=== PATIENT | female | born 1985 | race Caucasian/White ===

== ENCOUNTER 2017-01-07 21:01 | Emergency (ER) | payer MEDICAID ==
--- NOTE | 2017-01-07 21:18 | Emergency Department Record ---
History of Present Illness - General Chief complaint: ENT Stated complaint: SORE THROAT,WHITE BUMPS IN THROAT Time Seen by Provider: 01/07/17 21:15 Source: Patient Mode of Arrival: Ambulatory Limitations: No limitations - History of Present Illness Initial comments: 31 yo female presents to ED for evaluation of sore throat x 3 days. Patient reports that her daughter was recently diagnosed with tonsillitis, denies fevers , chills, cough, or ear pain symptoms. Patient does report drainage from the sinuses to the back of her throat, denies health problems at her baseline. MD complaint: Sore throat Onset/Timin -: Days(s) Location: Throat Severity: Moderate Severity scale (1-10): 6 Quality: Aching Consistency: Constant Improves with: None Worsens with: None Associated Symptoms: Sore throat - Related Data Home Medications Medication Instructions Recorded Confirmed Last Taken Omeprazole [Omeprazole] 40 mg PO DAILY 01/07/17 01/07/17 Unknown Allergies Allergy/AdvReac Type Severity Reaction Status Date / Time adhesive tape Allergy Intermediate RASH Unverified 08/27/16 08:46 nickel Allergy Intermediate SWELLING Unverified 08/27/16 08:46 (GENERAL) cyclobenzaprine HCl Allergy Mild CHILLS Unverified 08/27/16 08:46 [From Flexeril] Travel Screening - Travel/Exposure Within Last 30 Days Have you traveled within the last 30 days?: No Review of Systems Constitutional: Denies: Chills, Fever, Malaise, Night sweats Eyes: Denies: Eye discharge, Eye pain ENT: Reports: Congestion, Throat pain. Denies: Ear pain, Epistaxis Respiratory: Denies: Cough, Dyspnea Cardiovascular: Denies: Chest pain, Dyspnea on exertion Endocrine: Denies: Fatigue, Heat or cold intolerance Gastrointestinal: Denies: Abdominal pain, Nausea, Vomiting Genitourinary: Denies: Incontinence, Retention Musculoskeletal: Denies: Arthralgia, Back pain, Gout, Joint swelling Skin: Denies: Bruising, Change in color Neurological: Denies: Abnormal gait, Confusion, Headache, Seizure Psychiatric: Denies: Anxiety Hematological/Lymphatic: Denies: Anemia, Blood Clots Past Medical History - SOCIAL HISTORY Smoking Status: Former smoker Alcohol Use: None Drug Use: None - RESPIRATORY Hx Respiratory Disorders: No - CARDIOVASCULAR Hx Cardio Disorders: No - NEURO Hx Neuro Disorders: No - GI Hx Reflux: Yes Comment:: milroy water retention - Hx Genitourinary Disorders: Yes Hx UTI: Yes - ENDOCRINE Hx Endocrine Disorders: No - MUSCULOSKELETAL Hx Musculoskeletal Disorders: No - PSYCH Hx Psych Problems: No - HEMATOLOGY/ONCOLOGY Hx Hematology/Oncology Disorders: No Family Medical History Any Significant Family History?: No Physical Exam - General General Appearance: Alert, Oriented x3, Cooperative, No acute distress Limitations: No limitations - Head Head exam: Atraumatic, Normocephalic, Normal inspection Head exam detail: negative: Abrasion, Contusion, Rodriguez's sign, General tenderness, Hematoma, Laceration - Eye Eye exam: Normal appearance. negative: Conjunctival injection, Periorbital swelling, Periorbital tenderness, Scleral icterus - ENT ENT exam: Normal orophraynx Ear exam: negative: Auricular hematoma, Auricular trauma Nasal Exam: negative: Active bleeding, Discharge, Dried blood, Foreign body Mouth exam: negative: Drooling, Laceration, Muffled voice, Tongue elevation Throat exam: negative: Tonsillar erythema, Tonsillomegaly, R peritonsillar mass , L peritonsillar mass - Neck Neck exam: Normal inspection. negative: Meningismus, Tenderness - Respiratory Respiratory exam: Normal lung sounds bilaterally. negative: Rales, Respiratory distress, Rhonchi, Stridor - Cardiovascular Cardiovascular Exam: Regular rate, Normal rhythm, Normal heart sounds - GI/Abdominal GI/Abdominal exam: Soft. negative: Rebound, Rigid, Tenderness - Rectal Rectal exam: Deferred - exam: Deferred - Extremities Extremities exam: Normal inspection. negative: Pedal edema, Tenderness - Back Back exam: Denies: CVA tenderness (R), CVA tenderness (L) - Neurological Neurological exam: Alert, Normal gait, Oriented X3 - Psychiatric Psychiatric exam: Normal affect, Normal mood - Skin Skin exam: Normal color. negative: Abrasion Type of lesion: negative: abrasion Course Vital Signs 01/07/17 21:07 Temperature 98.5 F Pulse Rate [ 88 Pulse Ox Probe] Respiratory 20 Rate Blood Pressure 143/106 [Left Arm] Pulse Ox 98 - Reevaluation(s) Reevaluation #1: 01/07/17 21:26 Rapid strep negative Patient was updated on her strep results, symptoms appear c/w viral URI. Patient appears stable for discharge at this time. Disposition Disposition: Discharge Clinical Impression: Pharyngitis Qualifiers: Pharyngitis/tonsillitis etiology: unspecified etiology Qualified Code(s): J02.9 - Acute pharyngitis, unspecified Disposition: Home, Self-Care Condition: (2) Stable Instructions: Pharyngitis (ED) Additional Instructions: Return to ED if your symptoms worsen or if you have any concerns. Follow-up with your family doctor in 3-5 days as directed. Forms: Patient Portal Access Time of Disposition: 21:28 Quality - Quality Measures Quality Measures: N/A - Blood Pressure Screening Does Patient Have Any of the Following: No Blood Pressure Classification: Hypertensive Reading Systolic Measurement: 143 Diastolic Measurement: 106 Screening for High Blood Pressure: < First Hypertensive BP, F/U Documented > [ G8950] First Hypertensive Follow-up Interventions: Referral to alternative/primary care provider.
== END 2017-01-07 21:40 | disposition home or self-care (01) ==
LOC: ER 21:01
DX: J02.9 Acute pharyngitis, unspecified (principal)
CPT/HCPCS: 87880; 99282

== ENCOUNTER 2017-05-12 17:40 | Emergency (ER) | payer MEDICAID ==
--- NOTE | 2017-05-12 17:52 | Emergency Department Record ---
History of Present Illness - General Chief complaint: Female Urogenital Problem Stated complaint: MENSTRAUL BLEEDING Time Seen by Provider: 05/12/17 17:50 Source: Patient Mode of Arrival: Ambulatory Limitations: No limitations - History of Present Illness Initial comments: The patient is here due to a one day hx of lower abdominal pain and heavy vaginal bleeding. She states she may be bleeding about and ounce an hour and has felt weak and lightheaded today. She also is having abdominal cramping and nausea. The patient states she was due for her menses today which is her normal date but she is bleeding much more heavy than normal. There is no reported fever , chills, dysuria, or vaginal discharge. MD Complaint: Vaginal bleeding Onset/Timin -: Days(s) Location: Suprapubic Consistency: Constant Improves with: None Worsens with: None Patient : No Associated Symptoms: Abdominal pain, Nausea/vomiting, Vaginal bleeding, Other - Related Data Previous Rx's Medication Instructions Recorded Doxycycline Monohydrate [Mondoxyne 100 mg PO BID #20 capsule 05/12/17 Nl] Hydrocodone/Acetaminophen [[place] 1 each PO QID #12 tablet 05/12/17 5-325 Tablet] Metronidazole [Flagyl] 500 mg PO BID #20 tablet 05/12/17 Ondansetron [Zofran Odt] 4 mg SL .Q4-6H PRN #12 tab.rapdis 05/12/17 Allergies Allergy/AdvReac Type Severity Reaction Status Date / Time adhesive tape Allergy Intermediate RASH Verified 05/12/17 17:50 nickel Allergy Intermediate SWELLING Verified 05/12/17 17:50 (GENERAL) cyclobenzaprine HCl AdvReac Mild CHILLS Verified 05/12/17 17:50 [From Flexeril] NSAIDS (Non-Steroidal AdvReac VOMITING Verified 05/12/17 17:51 Anti-Inflamma Travel Screening - Travel/Exposure Within Last 30 Days Have you traveled within the last 30 days?: No Review of Systems Constitutional: Denies: Chills, Fever Eyes: Denies: Eye discharge ENT: Denies: Congestion Respiratory: Denies: Cough, Dyspnea Past Medical History - SOCIAL HISTORY Smoking Status: Former smoker Alcohol Use: Occasional Drug Use: None - RESPIRATORY Hx Respiratory Disorders: No - CARDIOVASCULAR Hx Cardio Disorders: No - NEURO Hx Neuro Disorders: No - GI Hx GI Disorders: Yes Hx Reflux: Yes Comment:: [place] water retention - Hx Genitourinary Disorders: Yes Hx UTI: Yes - ENDOCRINE Hx Endocrine Disorders: No - MUSCULOSKELETAL Hx Musculoskeletal Disorders: No - PSYCH Hx Psych Problems: No - HEMATOLOGY/ONCOLOGY Hx Hematology/Oncology Disorders: No Family Medical History Any Significant Family History?: No Physical Exam - General General Appearance: Alert, Oriented x3, Cooperative, No acute distress - Head Head exam: Atraumatic, Normocephalic - Eye Eye exam: Normal appearance, PERRL - Neck Neck exam: Normal inspection, Full ROM. negative: Tenderness - Respiratory Respiratory exam: Normal lung sounds bilaterally. negative: Respiratory distress - Cardiovascular Cardiovascular Exam: Regular rate, Normal rhythm, Normal heart sounds - GI/Abdominal GI/Abdominal exam: Soft, Tenderness (There is diffuse lower abdominal tenderness.). negative: Distended, Rebound, Rigid - exam: Adnexal tenderness (L), Adnexal tenderness (R), cervical motion tenderness, Normal external exam. negative: Abnormal external exam, Adnexal mass (L), Adnexal mass (R), Cervical discharge, Enlarged uterus, Normal bimanual exam, Vaginal bleeding (There presently is no active bleeding.) - Extremities Extremities exam: Pedal edema (chronic.). negative: Normal inspection Course Vital Signs 05/12/17 17:46 Temperature 98.2 F Pulse Rate 91 H Respiratory 20 Rate Blood Pressure 142/99 Pulse Ox 99 - Reevaluation(s) Reevaluation #1: The patient is stable at this time but is still having a significant amount of lower AP. On exam her abdomen is distillation operator but with no guarding or rebound. I did explain to her that it clearly appears that her bleeding has slowed down but due to the amount of pain and tenderness she is experiencing we will treat her for PID and order a CT. If the CT is neg she will be set up for an US in the AM. 05/12/17 18:42 Reevaluation #2: I do have the patient set up for an 8am US so she will need to return to the ER at 7am with a full bladder. The patient's care will be turned over to Dr. Kaplan at 7pm due to shift change. 05/12/17 18:49 05/12/17 18:55 Medical Decision Making - Lab Data Result diagrams: 05/12/17 18:00 05/12/17 18:00 Disposition Additional Instructions: Please return to the ER at 7am with a full bladder for an 8am pelvic US. Prescriptions: Doxycycline Monohydrate [Mondoxyne Nl] 100 mg PO BID #20 capsule Hydrocodone/Acetaminophen [[place] 5-325 Tablet] 1 each PO QID #12 tablet Metronidazole [Flagyl] 500 mg PO BID #20 tablet Ondansetron [Zofran Odt] 4 mg SL .Q4-6H PRN #12 tab.rapdis PRN Reason: Nausea Forms: Patient Portal Access Quality - Quality Measures Quality Measures: N/A - Blood Pressure Screening View Details: Yes Does Patient Have Any of the Following: No Blood Pressure Classification: Hypertensive Reading Systolic Measurement: 142 Diastolic Measurement: 99 Screening for High Blood Pressure: < First Hypertensive BP, F/U Documented > [ G8950] First Hypertensive Follow-up Interventions: Referral to alternative/primary care provider.
[2017-05-12] MEDS ORDERED: SODIUM CHLORIDE 0.9% 500 ML IV ONE (17:55)
[2017-05-12] MEDS ORDERED: ONDANSETRON HCL IV 4 MG/2 ML VIAL IV ONE (17:55)
[2017-05-12 18:13] LABS: BASO % 0.3 % (0-6); EOS % 1.9 % (0-6); GRAN % 59.7 % (47-80); HEMATOCRIT 36.4 % (35.0-47.0); HEMOGLOBIN 11.5 gm/dl (11.6-16.0); LYMPH % 27.4 % (16-45); MEAN CELL VOLUME 82.4 fl (81-97); MEAN CORPUSCULAR HGB CONC 31.6 g/dl (32-36); MEAN PLATELET VOLUME 10.6 fl (7.4-10.4); MONO % 10.7 % (0-9); PLATELET COUNT 256 K/uL (130-400); RED BLOOD COUNT 4.42 M/uL (3.80-5.40); RED CELL DISTRIBUTION WIDTH 14.5 % (11.5-14.5); WHITE BLOOD COUNT W/O DIFF 6.4 K/uL (4.2-12.2)
[2017-05-12] MEDS ORDERED: KETOROLAC 30 MG/ML VIAL IVP ONE (18:20)
[2017-05-12 18:29] LABS: BLOOD UREA NITROGEN 13 mg/dL (6-20); CREATININE 0.7 mg/dL (0.5-0.9); EST GLOMERULAR FILTRATION RATE > 60 mL/min; GLUCOSE,RANDOM 102 mg/dL (74-109)
[2017-05-12] MEDS ORDERED: ONDANSETRON HCL IV 4 MG/2 ML VIAL IVP ONE (18:39)
[2017-05-12] MEDS ORDERED: CEFTRIAXONE 250 MG VIAL IM ONE (18:41)
--- NOTE | 2017-05-12 19:17 | Emergency Department Record ---
History of Present Illness - General Chief complaint: Female Urogenital Problem Stated complaint: MENSTRAUL BLEEDING Time Seen by Provider: 05/12/17 17:50 Source: Patient Mode of Arrival: Ambulatory Limitations: No limitations - History of Present Illness Onset/Timin -: Days(s) Location: Suprapubic Consistency: Constant Improves with: None Worsens with: None Patient : No Associated Symptoms: Abdominal pain, Nausea/vomiting, Vaginal bleeding, Other - Related Data Previous Rx's Medication Instructions Recorded Doxycycline Monohydrate [Mondoxyne 100 mg PO BID #20 capsule 05/12/17 Nl] Hydrocodone/Acetaminophen [[place] 1 each PO QID #12 tablet 05/12/17 5-325 Tablet] Metronidazole [Flagyl] 500 mg PO BID #20 tablet 05/12/17 Ondansetron [Zofran Odt] 4 mg SL .Q4-6H PRN #12 tab.rapdis 05/12/17 Allergies Allergy/AdvReac Type Severity Reaction Status Date / Time adhesive tape Allergy Intermediate RASH Verified 05/12/17 17:50 nickel Allergy Intermediate SWELLING Verified 05/12/17 17:50 (GENERAL) cyclobenzaprine HCl AdvReac Mild CHILLS Verified 05/12/17 17:50 [From Flexeril] NSAIDS (Non-Steroidal AdvReac VOMITING Verified 05/12/17 17:51 Anti-Inflamma Travel Screening - Travel/Exposure Within Last 30 Days Have you traveled within the last 30 days?: No Review of Systems Constitutional: Denies: Chills, Fever Eyes: Denies: Eye discharge ENT: Denies: Congestion Respiratory: Denies: Cough, Dyspnea Past Medical History - SOCIAL HISTORY Smoking Status: Former smoker Alcohol Use: Occasional Drug Use: None - RESPIRATORY Hx Respiratory Disorders: No - CARDIOVASCULAR Hx Cardio Disorders: No - NEURO Hx Neuro Disorders: No - GI Hx GI Disorders: Yes Hx Reflux: Yes Comment:: milroy water retention - Hx Genitourinary Disorders: Yes Hx UTI: Yes - ENDOCRINE Hx Endocrine Disorders: No - MUSCULOSKELETAL Hx Musculoskeletal Disorders: No - PSYCH Hx Psych Problems: No - HEMATOLOGY/ONCOLOGY Hx Hematology/Oncology Disorders: No Family Medical History Any Significant Family History?: No Physical Exam - General Limitations: No limitations Course Vital Signs 05/12/17 17:46 Temperature 98.2 F Pulse Rate 91 H Respiratory 20 Rate Blood Pressure 142/99 Pulse Ox 99 - Reevaluation(s) Reevaluation #1: 05/12/17 19:17 Labs reviewed and are grossly unremarkable for an acute process. Patient was seen and examined, appears to be resting comfortably at this time. Patient is going for CT imaging currently. Reevaluation #2: 05/12/17 20:27 CT Abdomen and Pelvis: No ascites IUD in place No acute process. Patient was updated on all results, pain appears well controlled and the patient appears stable for discharge with return at 8:00 for US of the Pelvis ordered by the previous provider. Patient was updated on all results and the plan of care as discussed. Medical Decision Making - Lab Data Result diagrams: 05/12/17 18:00 05/12/17 18:00 Lab Results 05/12/17 05/12/17 05/12/17 Range/Units 18:00 18:00 18:00 WBC 6.4 (4.2-12.2) K/uL RBC 4.42 (3.80-5.40) M/uL Hgb 11.5 L (11.6-16.0) gm/dl Hct 36.4 (35.0-47.0) % MCV 82.4 (81-97) fl MCH 26.0 L (27-33) pg MCHC 31.6 L (32-36) g/dl RDW 14.5 (11.5-14.5) % Plt Count 256 (130-400) K/uL MPV 10.6 H (7.4-10.4) fl Gran % 59.7 (47-80) % Lymphocytes % 27.4 (16-45) % Monocytes % 10.7 H (0-9) % Eosinophils % 1.9 (0-6) % Basophils % 0.3 (0-6) % Sodium 139 (136-145) mmol/L Potassium 4.2 (3.4-4.5) mmol/L Chloride 103 (98-107) mmol/L Carbon Dioxide 25.0 (22-29) mmol/L Anion Gap 11.0 (7-16) BUN 13 (6-20) mg/dL Creatinine 0.7 (0.5-0.9) mg/dL Estimated GFR > 60 mL/min Random Glucose 102 (74-109) mg/dL Calcium 8.4 L (8.6-10.0) mg/dL Serum HCG, Qual Negative (NEGATIVE) Wet Prep (NONE SEEN) 05/12/17 Range/Units 18:18 WBC (4.2-12.2) K/uL RBC (3.80-5.40) M/uL Hgb (11.6-16.0) gm/dl Hct (35.0-47.0) % MCV (81-97) fl MCH (27-33) pg MCHC (32-36) g/dl RDW (11.5-14.5) % Plt Count (130-400) K/uL MPV (7.4-10.4) fl Gran % (47-80) % Lymphocytes % (16-45) % Monocytes % (0-9) % Eosinophils % (0-6) % Basophils % (0-6) % Sodium (136-145) mmol/L Potassium (3.4-4.5) mmol/L Chloride (98-107) mmol/L Carbon Dioxide (22-29) mmol/L Anion Gap (7-16) BUN (6-20) mg/dL Creatinine (0.5-0.9) mg/dL Estimated GFR mL/min Random Glucose (74-109) mg/dL Calcium (8.6-10.0) mg/dL Serum HCG, Qual (NEGATIVE) Wet Prep Clue cells (NONE SEEN) Disposition Disposition: Discharge Clinical Impression: Pelvic pain Disposition: Home, Self-Care Condition: (2) Stable Instructions: Abdominal Pain (ED) Additional Instructions: Please return to the ER at 7am with a full bladder for an 8am pelvic US. Prescriptions: Doxycycline Monohydrate [Mondoxyne Nl] 100 mg PO BID #20 capsule Hydrocodone/Acetaminophen [[place] 5-325 Tablet] 1 each PO QID #12 tablet Metronidazole [Flagyl] 500 mg PO BID #20 tablet Ondansetron [Zofran Odt] 4 mg SL .Q4-6H PRN #12 tab.rapdis PRN Reason: Nausea Forms: Patient Portal Access Time of Disposition: 20:29 Quality - Quality Measures Quality Measures: N/A - Blood Pressure Screening Does Patient Have Any of the Following: No Blood Pressure Classification: Hypertensive Reading Systolic Measurement: 134 Diastolic Measurement: 90 Screening for High Blood Pressure: < First Hypertensive BP, F/U Documented > [ G8950] First Hypertensive Follow-up Interventions: Referral to alternative/primary care provider.
--- NOTE | 2017-05-13 11:18 | CT SCAN REPORT ---
EXAM: CT OF THE ABDOMEN AND PELVIS WITH INTRAVENOUS CONTRAST HISTORY: HEAVY MENSTRUAL BLEEDING. TECHNIQUE: After the administration of 100 ml of Omnipaque 300 intravenous contrast axial images are obtained from the dome of the diaphragm to the symphysis pubis. FINDINGS: The lung bases and pleural spaces are clear. There is evidence of prior surgery at the epigastrium. The liver is normal. The gallbladder is normal. The pancreas and spleen are within normal limits. The kidneys and adrenal glands demonstrate no soft tissue mass, hydronephrosis, or perinephric inflammatory change. There is a retroaortic left renal vein. There is no evidence of mesenteric mass, bowel dilatation, free air or intraperitoneal free fluid. There is no evidence of intrapelvic mass. A cervical cap is present. There are no adnexal masses. The bones are unremarkable. No abdominal wall pathology is detected. IMPRESSION: NO EVIDENCE OF AN ACUTE INTRAABDOMINAL OR INTRAPELVIC PROCESS. JOB NUMBER: [id number] MTDD
[2017-05-14 15:54] LABS: GC SPECIMEN TYPE Vaginal
== END 2017-05-12 20:38 | disposition home or self-care (01) ==
LOC: ER 17:40
DX: R10.2 Pelvic and perineal pain (principal); N93.9 Abnormal uterine and vaginal bleeding, unspecified; R11.2 Nausea with vomiting, unspecified; R42 Dizziness and giddiness
CPT/HCPCS: 99284 ×2; 96376; 96374; 96372; 96375; 85025; 80048; 84703; 74177; Q0111; Q9967; J1885; J2405; J0696; 87210

== ENCOUNTER 2017-05-13 07:01 | Emergency (ER) | payer MEDICAID ==
--- NOTE | 2017-05-13 07:15 | Emergency Department Record ---
History of Present Illness - General Chief complaint: Female Urogenital Problem Stated complaint: ULTRASOUND Time Seen by Provider: 05/13/17 07:05 Source: Patient Mode of Arrival: Ambulatory Limitations: No limitations - History of Present Illness Initial comments: 31 yo female presents with 2 days of pelvic pain and heavy vaginal bleeding. She was seen in the ED yesterday. She was positive for clue cells on her pelvic examination. Her labs at that time were unremarkable. She had a CT scan that was read as normal. She was scheduled for an US this morning. The patient has had vaginal bleeding with the discomfort. This is slowing. She was HCG negative. Her Hgb was 11.5. Normal WBC count. MD Complaint: Pelvic pain -: Days(s) (2) Location: Suprapubic Radiation: Suprapubic Severity: Moderate Quality: Aching Consistency: Constant Improves with: None Worsens with: None Patient : No Associated Symptoms: Abdominal pain - Related Data Previous Rx's Medication Instructions Recorded Doxycycline Monohydrate [Mondoxyne 100 mg PO BID #20 capsule 05/12/17 Nl] Hydrocodone/Acetaminophen [[place] 1 each PO QID #12 tablet 05/12/17 5-325 Tablet] Metronidazole [Flagyl] 500 mg PO BID #20 tablet 05/12/17 Ondansetron [Zofran Odt] 4 mg SL .Q4-6H PRN #12 tab.rapdis 05/12/17 Allergies Allergy/AdvReac Type Severity Reaction Status Date / Time adhesive tape Allergy Intermediate RASH Verified 05/12/17 17:50 nickel Allergy Intermediate SWELLING Verified 05/12/17 17:50 (GENERAL) cyclobenzaprine HCl AdvReac Mild CHILLS Verified 05/12/17 17:50 [From Flexeril] NSAIDS (Non-Steroidal AdvReac VOMITING Verified 05/12/17 17:51 Anti-Inflamma Review of Systems Constitutional: Denies: Chills, Fever, Malaise, Weakness Eyes: Denies: Eye discharge ENT: Denies: Congestion Respiratory: Denies: Cough, Dyspnea, Hemoptysis, Stridor, Wheezes Cardiovascular: Denies: Chest pain, Syncope Endocrine: Denies: Fatigue Gastrointestinal: Reports: As per HPI, Abdominal pain Genitourinary: Denies: Dysuria, Urgency Skin: Denies: Bruising, Change in color, Rash Neurological: Denies: Headache Psychiatric: Denies: Anxiety Hematological/Lymphatic: Denies: Blood Clots, Easy bleeding, Easy bruising, Swollen glands Past Medical History - SOCIAL HISTORY Smoking Status: Former smoker Drug Use: None - RESPIRATORY Hx Respiratory Disorders: No - CARDIOVASCULAR Hx Cardio Disorders: No - NEURO Hx Neuro Disorders: No - GI Hx GI Disorders: Yes Hx Reflux: Yes Comment:: milroy water retention - Hx Genitourinary Disorders: Yes Hx UTI: Yes - ENDOCRINE Hx Endocrine Disorders: No - MUSCULOSKELETAL Hx Musculoskeletal Disorders: No - PSYCH Hx Psych Problems: No - HEMATOLOGY/ONCOLOGY Hx Hematology/Oncology Disorders: No Physical Exam - General General Appearance: Alert, Oriented x3 Limitations: No limitations - Head Head exam: Atraumatic - Eye Eye exam: Normal appearance - ENT ENT exam: Normal exam Ear exam: Normal external inspection Nasal Exam: Normal inspection Mouth exam: Normal external inspection - Neck Neck exam: Normal inspection - Cardiovascular Cardiovascular Exam: Regular rate, Normal rhythm, Normal heart sounds - Rectal Rectal exam: Deferred - exam: Deferred - Extremities Extremities exam: Normal inspection - Back Back exam: Denies: CVA tenderness (R), CVA tenderness (L) - Neurological Neurological exam: Alert, Oriented X3 - Psychiatric Psychiatric exam: Agitated, Anxious - Skin Skin exam: Dry, Intact, Normal color, Warm Course Vital Signs 05/13/17 07:05 Pulse Rate [ 95 H Pulse Ox Probe] Respiratory 20 Rate Blood Pressure 156/89 [Left Arm] Pulse Ox 99 - Reevaluation(s) Reevaluation #1: The EMR was reviewed The Labs, wet prep, and CT were reviewed Serum HCG was negative last night 05/13/17 07:14 05/13/17 09:02 UA is negative The US was reviewed. Complex fluid in the endometrium, small follicles, small free fluid. The patient is comfortable, her bleeding has stopped We discussed close follow up with the [facility] where her PCP is located. 05/13/17 10:44 Disposition Disposition: Discharge Clinical Impression: Bacterial vaginosis, Pelvic pain Disposition: Home, Self-Care Condition: (1) Good Instructions: Bacterial Vaginosis (ED), Pelvic Pain (ED) Additional Instructions: Call your family doctor for close follow up Return to the ER if worse, fever, uncontrolled pain or any new concerns Forms: Patient Portal Access Time of Disposition: 09:02 Quality - Quality Measures Quality Measures: N/A - Blood Pressure Screening Does Patient Have Any of the Following: No Blood Pressure Classification: Hypertensive Reading Systolic Measurement: 141 Diastolic Measurement: 95 Screening for High Blood Pressure: < Pre-Hypertensive BP, F/U Documented > [ G8950] Pre-Hypertensive Follow-up Interventions: Referral to alternative/primary care provider.
[2017-05-13 08:32] LABS: URINE APPEARANCE CLEAR; URINE BILIRUBIN NEGATIVE (NEGATIVE); URINE BLOOD NEGATIVE (NEGATIVE); URINE COLOR YELLOW; URINE GLUCOSE (UA) NEGATIVE (NEGATIVE); URINE KETONE NEGATIVE (NEGATIVE); URINE LEUKOCYTE ESTERASE NEGATIVE (NEGATIVE); URINE NITRITE NEGATIVE (NEGATIVE); URINE PROTEIN NEGATIVE (NEGATIVE); URINE UROBILINOGEN 0.2 E.U./dL (0.20 - 1.00)
--- NOTE | 2017-05-13 14:20 | ULTRASOUND REPORT ---
EXAM: EMERGENCY PELVIC ULTRASOUND WITH TRANSVAGINAL AND DOPPLER HISTORY: PELVIC PAIN. PERIODS GETTING WORSE AND WORSE. HEAVY BLEEDING AND CRAMPING. TECHNIQUE: Real-time ultrasound examination of the pelvis was performed utilizing transabdominal and transvaginal technique. Doppler ultrasound was also performed with color flow and spectral analysis. Comparison: No prior pelvic ultrasound with which to compare. FINDINGS: TRANSABDOMINAL PELVIC ULTRASOUND: The uterus is identified measuring approximately 5.1 cm in AP x 7 cm in transverse diameters x 9.3 cm in length. The endometrial stripe appears thickened measuring about 2.1 cm and containing some fluid. This fluid is nonspecific and presumably there is no clinical suspicion of although if there is any clinical possibility at all, follow-up test would be suggested to be certain that there is not an intrauterine gestational sac as part of this intrauterine fluid. The maternal left ovary is identified measuring about 2.2 cm in size with no left adnexal mass evident. The maternal right ovary is identified measuring about 2.9 cm in size with no right adnexal mass evident. No free fluid identified. TRANSVAGINAL PELVIC ULTRASOUND: In an effort to better visualize the region of the endometrium and endometrial fluid in particular, transvaginal study was also performed. There is a tiny cervical nabothian cyst. The endometrium again appears considerably thickened measuring about 2.6 cm in size with irregular fluid collections seen. Again, if there is any possibility of whatsoever, a test would be suggested to be certain none of this fluid with echogenic rim represents an irregular gestational sac. The fluid itself is nonspecific within the endometrium. The left ovary is identified measuring 2.5 cm in size and containing multiple small follicles, the largest is about 1.9 cm. Arterial and venous flow evident in the left ovary with color flow and spectral analysis Doppler. The right ovary is identified measuring about 2 cm in size with no right adnexal mass evident. Arterial and venous flow evident in the right ovary with color flow and spectral analysis Doppler. No free fluid evident. IMPRESSION: 1. TINY CERVICAL NABOTHIAN CYST. 2. THICKENED ENDOMETRIUM CONTAINING FLUID, NONSPECIFIC. IF THERE IS ANY CLINICAL POSSIBILITY OF , A TEST WOULD BE SUGGESTED. 3. SMALL LEFT OVARIAN CYSTS, THE LARGEST IS JUST UNDER 2 CM. 4. NO FREE FLUID IDENTIFIED. JOB NUMBER: [id number] [facility]
== END 2017-05-13 09:15 | disposition home or self-care (01) ==
LOC: ER 07:01
DX: N76.0 Acute vaginitis (principal); R10.2 Pelvic and perineal pain; Z87.891 Personal history of nicotine dependence
CPT/HCPCS: 76856; 81003; 99283

== ENCOUNTER 2017-05-28 17:53 | Emergency (ER) | payer MEDICAID ==
--- NOTE | 2017-05-28 18:26 | Emergency Department Record ---
History of Present Illness - General Chief complaint: Pain Stated complaint: PELVIC PAIN Time Seen by Provider: 05/28/17 18:03 Source: Patient Mode of Arrival: Ambulatory Limitations: No limitations - History of Present Illness Initial comments: The patient is here due to crampy sharp pelvic pain for 2 weeks. The symptoms are worse with exertion and bending. She denies any vaginal bleeding, discharge , fever, chills, or dysuria. The patient was seen for this 2 weeks ago and also at that time had heavy vaginal bleeding which did stop. She had an evaluation including CT, US, lab work, vaginal swabs that were all neg. The patient was treated for 10 days with Doxycycline and Flagyl and has completed those courses now. She does have an appointment with [facility] in 2 weeks for this problem. The patient did text her PCP today and was told to come to the ER due to not feeling better. MD Complaint: Abdominal Pain, Other Onset/Timin -: Week(s) Location: Other History of Same: Yes Radiation: None Severity scale (1-10): 4 Quality: Aching Consistency: Constant Improves with: Nothing Worsens with: Nothing Associated Symptoms: Denies other symptoms - Related Data Allergies Allergy/AdvReac Type Severity Reaction Status Date / Time adhesive tape Allergy Intermediate RASH Unverified 05/15/17 07:42 nickel Allergy Intermediate SWELLING Unverified 05/15/17 07:42 (GENERAL) cyclobenzaprine HCl AdvReac Mild CHILLS Unverified 05/15/17 07:42 [From Flexeril] Travel Screening - Travel/Exposure Within Last 30 Days Have you traveled within the last 30 days?: No - Travel Symptoms Symptom Screening: None Review of Systems Constitutional: Denies: Chills, Fever Eyes: Denies: Eye discharge ENT: Denies: Congestion Respiratory: Denies: Cough, Dyspnea Past Medical History - SOCIAL HISTORY Smoking Status: Former smoker - RESPIRATORY Hx Respiratory Disorders: No - CARDIOVASCULAR Hx Cardio Disorders: No - NEURO Hx Neuro Disorders: No - GI Hx GI Disorders: Yes Hx Reflux: Yes Comment:: milroy water retention - Hx Genitourinary Disorders: Yes Hx UTI: Yes - ENDOCRINE Hx Endocrine Disorders: No - MUSCULOSKELETAL Hx Musculoskeletal Disorders: No - PSYCH Hx Psych Problems: No - HEMATOLOGY/ONCOLOGY Hx Hematology/Oncology Disorders: No Family Medical History Any Significant Family History?: No Physical Exam - General General Appearance: Alert, Cooperative, No acute distress - Head Head exam: Atraumatic, Normocephalic - Eye Eye exam: Normal appearance, PERRL - Neck Neck exam: Normal inspection, Full ROM. negative: Tenderness - Respiratory Respiratory exam: Normal lung sounds bilaterally. negative: Respiratory distress - Cardiovascular Cardiovascular Exam: Regular rate, Normal rhythm, Normal heart sounds - GI/Abdominal GI/Abdominal exam: Soft, Normal bowel sounds. negative: Distended, Guarding, Rebound, Rigid, Tenderness (The abdomen is very soft and nontender.) - Extremities Extremities exam: Normal inspection, Full ROM, Normal capillary refill. negative: Tenderness - Neurological Neurological exam: Alert, Normal gait. negative: Abnormal gait, Motor sensory deficit Course Vital Signs 05/28/17 18:03 Temperature 98.5 F Pulse Rate 104 H Respiratory 20 Rate Blood Pressure 128/92 Pulse Ox 98 - Reevaluation(s) Reevaluation #1: I did discuss the lab work with the patient and the need to continue her home pain medicines and see her [facility] specialist as planned. 05/28/17 18:40 Medical Decision Making - Lab Data Result diagrams: 05/28/17 18:23 05/28/17 18:23 Disposition Disposition: Discharge Clinical Impression: Pelvic pain Disposition: Home, Self-Care Condition: (2) Stable Instructions: Abdominal Pain (ED) Additional Instructions: Please keep taking your home pain medicines as needed. Keep the appointment with your [facility] doctor for 2 weeks from now. Return to the ER for any worsening symptoms, fever, or vomiting. Forms: Patient Portal Access Time of Disposition: 18:41 Quality - Quality Measures Quality Measures: N/A - Blood Pressure Screening View Details: Yes Does Patient Have Any of the Following: No Blood Pressure Classification: Hypertensive Reading Systolic Measurement: 128 Diastolic Measurement: 92 Screening for High Blood Pressure: < First Hypertensive BP, F/U Documented > [ G8950] First Hypertensive Follow-up Interventions: Referral to alternative/primary care provider.
[2017-05-28 18:32] LABS: BASO % 0.3 % (0-6); EOS % 1.2 % (0-6); GRAN % 58.5 % (47-80); HEMATOCRIT 41.2 % (35.0-47.0); MEAN CELL VOLUME 82.9 fl (81-97); MEAN CORPUSCULAR HEMOGLOBIN 26.2 pg (27-33); MEAN CORPUSCULAR HGB CONC 31.6 g/dl (32-36); MEAN PLATELET VOLUME 10.6 fl (7.4-10.4); PLATELET COUNT 280 K/uL (130-400); RED BLOOD COUNT 4.97 M/uL (3.80-5.40); RED CELL DISTRIBUTION WIDTH 14.2 % (11.5-14.5); WHITE BLOOD COUNT W/O DIFF 7.4 K/uL (4.2-12.2)
[2017-05-28 18:33] LABS: URINE APPEARANCE CLEAR; URINE BILIRUBIN NEGATIVE (NEGATIVE); URINE BLOOD NEGATIVE (NEGATIVE); URINE COLOR YELLOW; URINE GLUCOSE (UA) NEGATIVE (NEGATIVE); URINE KETONE NEGATIVE (NEGATIVE); URINE LEUKOCYTE ESTERASE NEGATIVE (NEGATIVE); URINE NITRITE NEGATIVE (NEGATIVE); URINE PROTEIN NEGATIVE (NEGATIVE); URINE UROBILINOGEN 0.2 E.U./dL (0.20 - 1.00)
[2017-05-28 18:37] LABS: HCG,QUALITATIVE URINE NEGATIVE (NEGATIVE)
[2017-05-28 18:42] LABS: BLOOD UREA NITROGEN 15 mg/dL (6-20); CREATININE 0.8 mg/dL (0.5-0.9); EST GLOMERULAR FILTRATION RATE > 60 mL/min
[2017-05-28 18:43] LABS: BILIRUBIN,TOTAL < 0.20 mg/dL (0.2-1.0)
[2017-05-28 18:45] LABS: GLUCOSE,RANDOM 100 mg/dL (74-109)
[2017-05-28 18:48] LABS: ALB/GLOB RATIO 1.3 (1.1-1.8); ALBUMIN 3.9 g/dL (4.0-5.0); ALKALINE PHOSPHATASE 73 U/L (35-104); ALT/SGPT 15 U/L (<33); AST/SGOT 13 U/L (10.0-35.0); C-REACTIVE PROTEIN 0.09 mg/dL (<0.5)
== END 2017-05-28 18:54 | disposition home or self-care (01) ==
LOC: ER 17:53
DX: R10.2 Pelvic and perineal pain (principal); Z87.891 Personal history of nicotine dependence
CPT/HCPCS: 80053; 81003; 81025; 85025; 86140; 99283

== ENCOUNTER 2017-08-26 09:16 | Emergency (ER) | payer MEDICAID ==
--- NOTE | 2017-08-26 09:45 | Emergency Department Record ---
History of Present Illness - General Chief Complaint: Abdominal Pain Stated Complaint: ABD PAIN/DIARRHEA Time Seen by Provider: 08/26/17 09:37 Source: Patient Mode of Arrival: Ambulatory Limitations: No limitations - History of Present Illness Initial Comments: Pt with one month hx of daily diarrhea. Has soft to liquid stool everyday with occasional need to take Immodium. No fever or chills, no vomiting but today some nausea resolved after taking po Zofran. No recent travel or new foods. 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 No urinary frequency, urgency, dysuria, no vag discharge. Recent uterine ablation. Has lower abdominal cramping pains today better after BM and tylenol po. No recent AB Onset/Timin -: Month(s) Location: Diffuse Radiation: Suprapubic Migration to: No migration Severity: Moderate Severity scale (1-10): 5 Quality: Cramping Consistency: Intermittent, Now resolved Improves With: Bowel movement, Medication Worsens With: Nothing Associated Symptoms: Diarrhea, Nausea Treatments Prior to Arrival: Other (Zofran po) - Related Data LMP (females 10-50): Unknown Patient : No Allergies Allergy/AdvReac Type Severity Reaction Status Date / Time adhesive tape Allergy Intermediate RASH Verified 08/26/17 09:23 nickel Allergy Intermediate SWELLING Verified 08/26/17 09:23 (GENERAL) cyclobenzaprine HCl AdvReac Mild CHILLS Verified 08/26/17 09:23 [From Flexeril] Travel Screening - Travel/Exposure Within Last 30 Days Have you traveled within the last 30 days?: No Review of Systems Constitutional: Denies: Chills, Fever, Malaise Eyes: Denies: Eye pain, Vision change ENT: Denies: Congestion Respiratory: Denies: Cough, Dyspnea Cardiovascular: Denies: Chest pain Endocrine: Denies: Fatigue Gastrointestinal: Reports: As per HPI Genitourinary: Reports: Abnormal menses (recent uterine ablation) Musculoskeletal: Denies: Arthralgia, Back pain Skin: Denies: Rash Neurological: Denies: Confusion, Tremors Psychiatric: Denies: Anxiety Past Medical History - SOCIAL HISTORY Smoking Status: Former smoker Alcohol Use: None Drug Use: None - RESPIRATORY Hx Respiratory Disorders: No - CARDIOVASCULAR Hx Cardio Disorders: No - NEURO Hx Neuro Disorders: No - GI Hx GI Disorders: Yes Hx Reflux: Yes Comment:: milroy water retention - Hx Genitourinary Disorders: Yes Hx UTI: Yes - ENDOCRINE Hx Endocrine Disorders: No - MUSCULOSKELETAL Hx Musculoskeletal Disorders: No - PSYCH Hx Psych Problems: No - HEMATOLOGY/ONCOLOGY Hx Hematology/Oncology Disorders: No Family Medical History Any Significant Family History?: No Physical Exam - General General Appearance: Alert, Oriented x3, Cooperative, Mild distress Limitations: No limitations - Head Head exam: Atraumatic - Eye Eye exam: Normal appearance - ENT ENT exam: Normal exam - Neck Neck exam: Normal inspection - Respiratory Respiratory exam: Normal lung sounds bilaterally. negative: Wheezes - Cardiovascular Cardiovascular Exam: Regular rate, Normal rhythm - GI/Abdominal GI/Abdominal exam: Soft, Normal bowel sounds, Tenderness. negative: Guarding, Rebound (diffuse tender lower abd bilateral L>R) - Rectal Rectal exam: Deferred - exam: Deferred (no discharge or complaints. ) - Extremities Extremities exam: Normal inspection. negative: Calf tenderness, Tenderness Course Vital Signs 08/26/17 09:19 Temperature 98.1 F Pulse Rate 81 Respiratory 16 Rate Blood Pressure 145/99 Pulse Ox 99 - Reevaluation(s) Reevaluation #1: 08/26/17 11:08 pt with normal labs. Unable to provide stool sample. Crampy lower abd discomfort, re-exam of ABD is soft without guarding or rebound. Deep palpation without guarding. No upper abd pain. Will give Toradol. Reevaluation #2: 08/26/17 11:44 Much better with toradol. Has established GI Doc at [facility] and will see them this week. Increase fluids and rest. Will collect stool sample at home and return to our lab for open C dif order. Medical Decision Making - Lab Data Result diagrams: 08/26/17 09:45 08/26/17 10:00 Disposition Disposition: Discharge Clinical Impression: Diarrhea Disposition: Home, Self-Care Return To Work/School Note Provided: Yes Condition: (1) Good Instructions: Constipation (ED), Abdominal Pain (ED) Forms: Patient Portal Access Quality - Quality Measures Quality Measures: N/A - Blood Pressure Screening Does Patient Have Any of the Following: No Blood Pressure Classification: Hypertensive Reading Systolic Measurement: 145 Diastolic Measurement: 99 Screening for High Blood Pressure: < Pre-Hypertensive BP, F/U Documented > [ G8950] Pre-Hypertensive Follow-up Interventions: Lifestyle modifications. Lifestyle Modification: Dietary Sodium Restriction, Increased Physical Activity
[2017-08-26] MEDS: 0.9 % SODIUM CHLORIDE 1000ML 1,000 ML IV ONE (10:03)
[2017-08-26 10:05] LABS: HEMATOCRIT 39.1 % (35.0-47.0); HEMOGLOBIN 12.4 gm/dl (11.6-16.0); MEAN CELL VOLUME 83.4 fl (81-97); MEAN CORPUSCULAR HEMOGLOBIN 26.4 pg (27-33); MEAN CORPUSCULAR HGB CONC 31.7 g/dl (32-36); MEAN PLATELET VOLUME 10.9 fl (7.4-10.4); PLATELET COUNT 228 K/uL (130-400); RED BLOOD COUNT 4.69 M/uL (3.80-5.40); RED CELL DISTRIBUTION WIDTH 14.9 % (11.5-14.5); WHITE BLOOD COUNT W/O DIFF 5.2 K/uL (4.2-12.2)
[2017-08-26 10:14] LABS: BLOOD UREA NITROGEN 16 mg/dL (6-20); CREATININE 0.7 mg/dL (0.5-0.9); EST GLOMERULAR FILTRATION RATE > 60 mL/min
[2017-08-26 10:15] LABS: TOTAL PROTEIN 6.7 g/dL (6.6-8.7)
[2017-08-26 10:17] LABS: GLUCOSE,RANDOM 106 mg/dL (74-109)
[2017-08-26 10:20] LABS: ALB/GLOB RATIO 1.3 (1.1-1.8); ALBUMIN 3.8 g/dL (4.0-5.0); ALKALINE PHOSPHATASE 78 U/L (35-104); ALT/SGPT 9 U/L (<33); AST/SGOT 11 U/L (10.0-35.0)
[2017-08-26 11:13] LABS: PLATELET ESTIMATE NORMAL (NORMAL)
[2017-08-26] MEDS: KETOROLAC 30 MG/ML VIAL IVP ONE (11:23)
== END 2017-08-26 12:01 | disposition home or self-care (01) ==
LOC: ER 09:16
DX: R19.7 Diarrhea, unspecified (principal); R11.0 Nausea; R10.32 Left lower quadrant pain; R10.31 Right lower quadrant pain; Z87.891 Personal history of nicotine dependence
CPT/HCPCS: 80053; 81025; 85027; 87493; 96361; 96374; 99284; J1885; J7030

== ENCOUNTER 2017-12-24 18:40 | Emergency (ER) | payer MEDICAID ==
--- NOTE | 2017-12-24 18:51 | Emergency Department Record ---
History of Present Illness - General Chief complaint: ENT Stated complaint: RT EAR PAIN Time Seen by Provider: 12/24/17 18:46 Source: Patient Mode of Arrival: Wheelchair Limitations: No limitations - History of Present Illness Initial comments: 32 yo female presents to ED for evaluation of recurrent ear infection and pain symptoms. Patient reports that she has taken (4) rounds of antibiotics for right sided ear and neck pain symptoms. Patient denies fevers, chills, or headache symptoms, denies health problems other than seasonal allergies. Patient reports that her symptoms have been ongoing since September of this year. MD complaint: Ear pain Onset/Timin -: Days(s) Location: R ear Severity scale (1-10): 8 Consistency: Constant Improves with: None Worsens with: None - Related Data Previous Rx's Medication Instructions Recorded Amoxicillin [Amoxil] 875 mg PO BID #20 tab 12/24/17 Allergies Allergy/AdvReac Type Severity Reaction Status Date / Time adhesive tape Allergy Intermediate RASH Unverified 12/16/17 08:21 nickel Allergy Intermediate SWELLING Unverified 12/16/17 08:21 (GENERAL) cyclobenzaprine HCl AdvReac Mild CHILLS Unverified 12/16/17 08:21 [From PERORA] Travel Screening - Travel/Exposure Within Last 30 Days Have you traveled within the last 30 days?: No Review of Systems Constitutional: Denies: Chills, Fever, Malaise, Night sweats Eyes: Denies: Eye discharge, Eye pain ENT: Reports: Ear pain. Denies: Congestion, Epistaxis Respiratory: Denies: Cough, Dyspnea Cardiovascular: Denies: Chest pain, Dyspnea on exertion Endocrine: Denies: Fatigue, Heat or cold intolerance Gastrointestinal: Denies: Abdominal pain, Nausea, Vomiting Genitourinary: Denies: Incontinence, Retention Musculoskeletal: Denies: Arthralgia, Back pain, Gout Skin: Denies: Bruising Neurological: Denies: Abnormal gait, Confusion, Headache Psychiatric: Denies: Anxiety Hematological/Lymphatic: Denies: Anemia, Blood Clots Past Medical History - SOCIAL HISTORY Smoking Status: Former smoker - RESPIRATORY Hx Respiratory Disorders: No - CARDIOVASCULAR Hx Cardio Disorders: No - NEURO Hx Neuro Disorders: No - GI Hx GI Disorders: Yes Hx Reflux: Yes Comment:: milroy water retention - Hx Genitourinary Disorders: Yes Hx UTI: Yes - ENDOCRINE Hx Endocrine Disorders: No - MUSCULOSKELETAL Hx Musculoskeletal Disorders: No - PSYCH Hx Psych Problems: No - HEMATOLOGY/ONCOLOGY Hx Hematology/Oncology Disorders: No Family Medical History Any Significant Family History?: No Physical Exam - General General Appearance: Alert, Oriented x3, Cooperative, No acute distress, Other ( Flat affect) Limitations: No limitations - Head Head exam: Atraumatic, Normocephalic, Normal inspection Head exam detail: negative: Abrasion, Contusion, Rodriguez's sign, General tenderness, Hematoma, Laceration - Eye Eye exam: Normal appearance. negative: Conjunctival injection, Periorbital swelling, Periorbital tenderness, Scleral icterus - ENT Ear exam: Other (TM appears normal, Left TM (non-painful side) appears mildly erythematous). negative: Auricular hematoma, Auricular trauma, External canal tenderness Nasal Exam: negative: Active bleeding, Discharge, Dried blood, Foreign body Mouth exam: negative: Drooling, Laceration, Muffled voice, Tongue elevation Throat exam: negative: Tonsillar erythema, Tonsillomegaly, R peritonsillar mass , L peritonsillar mass - Neck Neck exam: Normal inspection. negative: Tenderness - Respiratory Respiratory exam: Normal lung sounds bilaterally. negative: Rhonchi, Stridor, Wheezes - Cardiovascular Cardiovascular Exam: Regular rate, Normal rhythm, Normal heart sounds - GI/Abdominal GI/Abdominal exam: Soft. negative: Rebound, Rigid, Tenderness - Rectal Rectal exam: Deferred - exam: Deferred - Extremities Extremities exam: Normal inspection. negative: Pedal edema, Tenderness - Back Back exam: Denies: CVA tenderness (R), CVA tenderness (L) - Neurological Neurological exam: Alert, Normal gait, Oriented X3 - Psychiatric Psychiatric exam: Normal affect, Normal mood - Skin Skin exam: Normal color. negative: Abrasion Type of lesion: negative: abrasion Course Vital Signs 12/24/17 18:42 Temperature 98.2 F Pulse Rate 84 Respiratory 20 Rate Blood Pressure 137/89 Pulse Ox 100 - Reevaluation(s) Reevaluation #1: 12/24/17 20:04 CT Head: No acute process CT Soft-tissue Neck: Negative for an acute process Normal EAC and middle ear canal. Patient was updated on all results, left TM appears c/w otitis media however the right ear is painful per patient. No evidence for mastoiditis or soft-tissue infection of the neck. Patient has been referred to an ENT for further evaluation as well, she is waiting for an appointment. Will treat with Amoxicillin (as Augmenting did not work for her), she will follow-up with ENT as directed. Disposition Disposition: Discharge Clinical Impression: Otitis media Qualifiers: Otitis media type: unspecified Chronicity: acute Qualified Code(s): H66.90 - Otitis media, unspecified, unspecified ear Disposition: Home, Self-Care Condition: (2) Stable Instructions: Otitis Media (ED) Additional Instructions: Return to ED if your symptoms worsen or if you have any concerns. Amoxicillin as directed. Follow-up with an ENT specialist in 3-5 days as directed. Prescriptions: Amoxicillin [Amoxil] 875 mg PO BID #20 tab Forms: Patient Portal Access Time of Disposition: 20:11 Quality - Quality Measures Quality Measures: N/A - Blood Pressure Screening Does Patient Have Any of the Following: No Blood Pressure Classification: Pre-Hypertensive BP Reading Systolic Measurement: 116 Diastolic Measurement: 82 Screening for High Blood Pressure: < Pre-Hypertensive BP, F/U Documented > [ G8950] Pre-Hypertensive Follow-up Interventions: Referral to alternative/primary care provider.
--- NOTE | 2017-12-25 17:35 | CT SCAN REPORT ---
EXAM: CT SCAN HEAD WO CONTRAST HISTORY: EAR PAIN. TECHNIQUE: Sequential axial images were obtained from the foramen magnum to the vertex without contrast administration. FINDINGS: The brain volume is normal. No large territorial infarct, hemorrhage , mass effect, or midline shift. No extra-axial fluid collection. Orbits, paranasal sinuses, and mastoid air cells are normal. IMPRESSION: NO ACUTE INTRACRANIAL ABNORMALITY IS APPRECIATED. JOB NUMBER: [id number] [facility]
--- NOTE | 2017-12-25 17:39 | CT SCAN REPORT ---
EXAM: CT SCAN SOFT TISSUE NECK W CONTRAST HISTORY: EAR PAIN. TECHNIQUE: Sequential axial images were obtained through the soft tissue of the neck after intravenous administration of 100 mL of Omnipaque-300 contrast material. FINDINGS: The naso- and oropharynx appear normal. The parotid glands appear normal. There is calcification of the left tonsil. The epiglottis appears normal. Tongue base appears normal. True and false cords and trachea appear normal. Thyroid gland appears normal. Mastoid air cells appear normal. The middle ear cavities appear unremarkable. IMPRESSION: THE MIDDLE EAR CAVITIES APPEAR UNREMARKABLE. MASTOID AIR CELLS APPEAR NORMAL. [facility]: [id number] [facility]
== END 2017-12-24 20:34 | disposition home or self-care (01) ==
LOC: ER 18:40
DX: H66.92 Otitis media, unspecified, left ear (principal); M54.2 Cervicalgia; H92.01 Otalgia, right ear; Z87.891 Personal history of nicotine dependence
CPT/HCPCS: 70450; 70491; 81025; 99283

== ENCOUNTER 2018-05-02 08:50 | Emergency (ER) | payer MEDICAID ==
--- NOTE | 2018-05-02 09:31 | Emergency Department Record ---
History of Present Illness - General Chief complaint: Rash Stated complaint: RASH, BACK & SIDE Time Seen by Provider: 05/02/18 09:18 Source: Patient Mode of Arrival: Ambulatory Limitations: No limitations - History of Present Illness Initial comments: pt has a rash that suddenly erupted in the last 2 days after going for a walk. it itches and parra and hurts. it is getting worse. complaint: Rash Onset/Timin -: Days(s) Location: Back Severity: Moderate Quality: Aching, Burning Improves with: None Worsens with: None Context: None Associated symptoms: Denies other symptoms Treatments Prior to Arrival: Other - Related Data Previous Rx's Medication Instructions Recorded Hydrocodone/Acetaminophen [[place] 1 each PO Q6HR #10 tablet 05/02/18 5-325 Tablet] Prednisone [Prednisone 10Mg] 10 mg PO ASDIR #30 tab 05/02/18 Valacyclovir HCl [Valacyclovir] 1,000 mg PO TID #42 tablet 05/02/18 Allergies Allergy/AdvReac Type Severity Reaction Status Date / Time adhesive tape Allergy Intermediate RASH Verified 05/02/18 08:57 nickel Allergy Intermediate SWELLING Verified 05/02/18 08:57 (GENERAL) cyclobenzaprine HCl AdvReac Mild CHILLS Verified 05/02/18 08:57 [From Flexeril] Travel Screening - Travel/Exposure Within Last 30 Days Have you traveled within the last 30 days?: No Review of Systems Reviewed: No additional complaints except as noted below Constitutional: Reports: As per HPI. Denies: Chills, Fever, Malaise, Night sweats, Weakness, Weight change Eyes: Reports: As per HPI. Denies: Eye discharge, Eye pain, Photophobia, Vision change ENT: Reports: As per HPI. Denies: Congestion, Dental pain, Ear pain, Epistaxis , Hearing loss, Throat pain Respiratory: Reports: As per HPI. Denies: Cough, Dyspnea, Hemoptysis, Stridor, Wheezes Cardiovascular: Reports: As per HPI. Denies: Arrhythmia, Chest pain, Dyspnea on exertion, Edema, Murmurs, Orthopnea, Palpitations, Paroxysmal nocturnal dyspnea, Rheumatic Fever, Syncope Endocrine: Reports: As per HPI. Denies: Fatigue, Heat or cold intolerance, Polydipsia, Polyuria Gastrointestinal: Reports: As per HPI. Denies: Abdominal pain, Constipation, Diarrhea, Hematemesis, Hematochezia, Melena, Nausea, Vomiting Genitourinary: Reports: As per HPI. Denies: Abnormal menses, Discharge, Dyspareunia, Dysuria, Frequency, Hematuria, Incontinence, Retention, Urgency Musculoskeletal: Reports: As per HPI. Denies: Arthralgia, Back pain, Gout, Joint swelling, Myalgia, Neck pain Skin: Reports: As per HPI, Rash. Denies: Bruising, Change in color, Change in hair/nails, Lesions, Pruritus Neurological: Reports: As per HPI. Denies: Abnormal gait, Confusion, Headache, Numbness, Paresthesias, Seizure, Tingling, Tremors, Vertigo, Weakness Psychiatric: Reports: As per HPI. Denies: Anxiety, Auditory hallucinations, Depression, Homicidal thoughts, Suicidal thoughts, Visual hallucinations Hematological/Lymphatic: Reports: As per HPI. Denies: Anemia, Blood Clots, Easy bleeding, Easy bruising, Swollen glands Past Medical History - SOCIAL HISTORY Smoking Status: Former smoker Alcohol Use: None Drug Use: None - RESPIRATORY Hx Respiratory Disorders: No - CARDIOVASCULAR Hx Cardio Disorders: No - NEURO Hx Neuro Disorders: No - GI Hx GI Disorders: Yes Hx Reflux: Yes Comment:: milroy water retention - Hx Genitourinary Disorders: Yes Hx UTI: Yes - ENDOCRINE Hx Endocrine Disorders: No - MUSCULOSKELETAL Hx Musculoskeletal Disorders: No - PSYCH Hx Psych Problems: No - HEMATOLOGY/ONCOLOGY Hx Hematology/Oncology Disorders: No Family Medical History Any Significant Family History?: No Physical Exam - General General Appearance: Alert, Oriented x3, Cooperative, Mild distress - Head Head exam: Normal inspection - Eye Eye exam: Normal appearance, PERRL, EOMI Pupils: Normal accommodation - ENT ENT exam: Normal exam, Mucous membranes moist, Normal external ear exam, Normal orophraynx Ear exam: Normal external inspection. negative: External canal tenderness Nasal Exam: Normal inspection. negative: Discharge, Sinus tenderness Mouth exam: Normal external inspection, Tongue normal Teeth exam: Normal inspection. negative: Dental caries Throat exam: Normal inspection. negative: Tonsillar erythema, Tonsillar exudate - Neck Neck exam: Normal inspection, Full ROM. negative: Tenderness - Respiratory Respiratory exam: Normal lung sounds bilaterally. negative: Respiratory distress - Cardiovascular Cardiovascular Exam: Regular rate, Normal rhythm, Normal heart sounds - GI/Abdominal GI/Abdominal exam: Soft, Normal bowel sounds. negative: Tenderness - Rectal Rectal exam: Deferred - exam: Deferred - Extremities Extremities exam: Normal inspection, Full ROM, Normal capillary refill. negative: Tenderness - Back Back exam: Reports: Normal inspection, Full ROM. Denies: Muscle spasm, Rash noted, Tenderness Image of Body Front/Back: 1 - vesicular rash - Neurological Neurological exam: Alert, CN II-XII intact, Normal gait, Oriented X3 - Psychiatric Psychiatric exam: Normal affect, Normal mood - Skin Skin exam: Dry, Intact, Normal color, Rash, Warm Distribution of rash: Back Description of rash: Confluent, Erythematous, Tenderness, Vesicular Course Vital Signs 05/02/18 08:54 Temperature 98.0 F Pulse Rate 88 Respiratory 18 Rate Blood Pressure 126/90 Pulse Ox 98 Disposition Disposition: Discharge Clinical Impression: Shingles Qualifiers: Herpes zoster complications: without complications Qualified Code(s): B02.9 - Zoster without complications Disposition: Home, Self-Care Condition: (1) Good Instructions: Shingles (ED) Additional Instructions: follow up with family doctor. return sooner if worse Prescriptions: Hydrocodone/Acetaminophen [[place] 5-325 Tablet] 1 each PO Q6HR #10 tablet Prednisone [Prednisone 10Mg] 10 mg PO ASDIR #30 tab Valacyclovir HCl [Valacyclovir] 1,000 mg PO TID #42 tablet Quality - Quality Measures Quality Measures: N/A - Blood Pressure Screening Does Patient Have Any of the Following: No Blood Pressure Classification: Hypertensive Reading Systolic Measurement: 126 Diastolic Measurement: 90 Screening for High Blood Pressure: < Pre-Hypertensive BP, F/U Documented > [ G8950] Pre-Hypertensive Follow-up Interventions: Follow-up with rescreen every year.
== END 2018-05-02 09:51 | disposition home or self-care (01) ==
LOC: ER 08:50
DX: B02.9 Zoster without complications (principal); Z87.891 Personal history of nicotine dependence
CPT/HCPCS: 99282

== ENCOUNTER 2018-10-10 13:33 | Emergency (ER) | payer MEDICAID ==
[2018-10-10] MEDS ORDERED: KETOROLAC 30 MG/ML VIAL IVP ONE (14:08)
[2018-10-10 14:14] LABS: URINE APPEARANCE CLEAR; URINE BILIRUBIN NEGATIVE (NEGATIVE); URINE BLOOD NEGATIVE (NEGATIVE); URINE COLOR YELLOW; URINE GLUCOSE (UA) NEGATIVE (NEGATIVE); URINE KETONE NEGATIVE (NEGATIVE); URINE LEUKOCYTE ESTERASE NEGATIVE (NEGATIVE); URINE NITRITE NEGATIVE (NEGATIVE); URINE PROTEIN NEGATIVE (NEGATIVE); URINE UROBILINOGEN 0.2 E.U./dL (0.20 - 1.00)
[2018-10-10 14:43] LABS: ABSOLUTE NEUTROPHIL COUNT 0.81; HEMATOCRIT 40.9 % (35.0-47.0); HEMOGLOBIN 13.9 gm/dl (11.6-16.0); MEAN CELL VOLUME 87.8 fl (81-97); MEAN CORPUSCULAR HEMOGLOBIN 29.8 pg (27-33); MEAN PLATELET VOLUME 10.9 fl (7.4-10.4); PLATELET COUNT 125 K/uL (130-400); RED BLOOD COUNT 4.66 M/uL (3.80-5.40); RED CELL DISTRIBUTION WIDTH 13.3 % (11.5-14.5); WHITE BLOOD COUNT W/O DIFF 2.7 K/uL (4.2-12.2)
--- NOTE | 2018-10-10 16:12 | Emergency Department Record ---
History of Present Illness - General Chief complaint: Flank Pain Stated complaint: FLANK PAIN Time Seen by Provider: 10/10/18 13:58 Source: Patient, RN notes reviewed Mode of Arrival: Ambulatory - History of Present Illness Initial comments: right flank pain and right upper quad pain and she was told she had a kidney stone at [facility] but no imaging done and urine didn't have blood in it. she was given flomax and she stopped that because of body aches and congestion slight sore throat and she blamed those symptoms on the flomax. Onset/Timin -: Days(s) Location: RLQ Radiation: R flank Severity: Moderate Severity scale (1-10): 6 Quality: Aching Consistency: Constant, Intermittent Improves with: None Patient : No Associated Symptoms: Denies other symptoms - Related Data Home Medications Medication Instructions Recorded Confirmed Last Taken Fexofenadine HCl [Rosalie Allergy] 60 mg PO BID 10/10/18 10/10/18 1 Day Ago ~10/09/18 Previous Rx's Medication Instructions Recorded Tizanidine HCl [Zanaflex] 2 mg PO TID #20 capsule 10/10/18 Allergies Allergy/AdvReac Type Severity Reaction Status Date / Time adhesive tape Allergy Intermediate RASH Verified 10/10/18 13:42 nickel Allergy Intermediate SWELLING Verified 10/10/18 13:42 (GENERAL) cyclobenzaprine HCl AdvReac Mild CHILLS Verified 10/10/18 13:42 [From Flexeril] Travel Screening - Travel/Exposure Within Last 30 Days Have you traveled within the last 30 days?: No - Travel/Exposure Within Last Year Have you traveled outside the [place] in the last year?: No - Additonal Travel Details Have you been exposed to anyone with a communicable illness?: No - Travel Symptoms Symptom Screening: None Review of Systems Reviewed: No additional complaints except as noted below Constitutional: Reports: As per HPI. Denies: Chills, Fever, Malaise, Night sweats, Weakness, Weight change Eyes: Reports: As per HPI. Denies: Eye discharge, Eye pain, Photophobia, Vision change ENT: Reports: As per HPI. Denies: Congestion, Dental pain, Ear pain, Epistaxis, Hearing loss, Throat pain Respiratory: Reports: As per HPI. Denies: Cough, Dyspnea, Hemoptysis, Stridor, Wheezes Cardiovascular: Reports: As per HPI. Denies: Arrhythmia, Chest pain, Dyspnea on exertion, Edema, Murmurs, Orthopnea, Palpitations, Paroxysmal nocturnal dyspnea, Rheumatic Fever, Syncope Endocrine: Reports: As per HPI. Denies: Fatigue, Heat or cold intolerance, Polydipsia, Polyuria Gastrointestinal: Reports: As per HPI. Denies: Abdominal pain, Constipation, Diarrhea, Hematemesis, Hematochezia, Melena, Nausea, Vomiting Genitourinary: Reports: As per HPI. Denies: Abnormal menses, Discharge, Dy spareunia, Dysuria, Frequency, Hematuria, Incontinence, Retention, Urgency Musculoskeletal: Reports: As per HPI. Denies: Arthralgia, Back pain, Gout, Joint swelling, Myalgia, Neck pain Skin: Reports: As per HPI. Denies: Bruising, Change in color, Change in hair/nails, Lesions, Pruritus, Rash Neurological: Reports: As per HPI. Denies: Abnormal gait, Confusion, Headache, Numbness, Paresthesias, Seizure, Tingling, Tremors, Vertigo, Weakness Psychiatric: Reports: As per HPI. Denies: Anxiety, Auditory hallucinations, Depression, Homicidal thoughts, Suicidal thoughts, Visual hallucinations Hematological/Lymphatic: Reports: As per HPI. Denies: Anemia, Blood Clots, Easy bleeding, Easy bruising, Swollen glands Past Medical History - SOCIAL HISTORY Smoking Status: Former smoker Alcohol Use: Occasional Drug Use: None - RESPIRATORY Hx Respiratory Disorders: No - CARDIOVASCULAR Hx Cardio Disorders: No - NEURO Hx Neuro Disorders: No - GI Hx GI Disorders: Yes Hx Reflux: Yes Comment:: milroy water retention - Hx Genitourinary Disorders: Yes Hx UTI: Yes - ENDOCRINE Hx Endocrine Disorders: No - MUSCULOSKELETAL Hx Musculoskeletal Disorders: No - PSYCH Hx Psych Problems: No - HEMATOLOGY/ONCOLOGY Hx Hematology/Oncology Disorders: No Family Medical History Any Significant Family History?: Yes Physical Exam - General General Appearance: Alert, Oriented x3, Cooperative, No acute distress - Head Head exam: Normal inspection - Eye Eye exam: Normal appearance, PERRL Pupils: Normal accommodation - ENT ENT exam: Normal exam, Mucous membranes moist, Normal external ear exam, Normal orophraynx, TM's normal bilaterally Ear exam: Normal external inspection. negative: External canal tenderness Nasal Exam: Normal inspection. negative: Discharge, Sinus tenderness Mouth exam: Normal external inspection, Tongue normal Teeth exam: Normal inspection. negative: Dental caries Throat exam: Normal inspection. negative: Tonsillar erythema, Tonsillar exudate - Neck Neck exam: Normal inspection, Full ROM. negative: Tenderness - Respiratory Respiratory exam: Normal lung sounds bilaterally. negative: Respiratory distress - Cardiovascular Cardiovascular Exam: Regular rate, Normal rhythm, Normal heart sounds - GI/Abdominal GI/Abdominal exam: Soft, Normal bowel sounds, Tenderness (right flank pain and right abdominal pain ) - Rectal Rectal exam: Deferred - exam: Deferred - Extremities Extremities exam: Normal inspection, Full ROM, Normal capillary refill. negative: Tenderness - Back Back exam: Reports: Normal inspection, Full ROM. Denies: Muscle spasm, Rash noted, Tenderness - Neurological Neurological exam: Alert, Normal gait, Oriented X3, Reflexes normal - Psychiatric Psychiatric exam: Normal affect, Normal mood - Skin Skin exam: Dry, Intact, Normal color, Warm Course Vital Signs 10/10/18 13:37 Temperature 98.4 F Pulse Rate 75 Respiratory 16 Rate Blood Pressure 141/92 Pulse Ox 100 Medical Decision Making - Data Complexity MDM Data: Labs Ordered and/or Reviewed (urine negative, WBC low and lymphs up ), X-Ray Ordered and/or Reviewed (CT abd no kidney stones of hydronephrosis and essentially neg CR) - Lab Data Result diagrams: 10/10/18 14:37 10/10/18 15:04 Lab Results 10/10/18 10/10/18 10/10/18 Range/Units 12:00 14:00 14:37 WBC 2.7 L (4.2-12.2) K/uL RBC 4.66 (3.80-5.40) M/uL Hgb 13.9 (11.6-16.0) gm/dl Hct 40.9 (35.0-47.0) % MCV 87.8 (81-97) fl MCH 29.8 (27-33) pg MCHC 34.0 (32-36) g/dl RDW 13.3 (11.5-14.5) % Plt Count 125 L (130-400) K/uL MPV 10.9 H (7.4-10.4) fl Neutrophils % 33.0 L (47-80) % Eosinophils % Not Reportable Basophils % Not Reportable Absolute Neutrophils 0.81 Lymphocytes 48.0 H (16-45) % Monocytes 16.0 H (0-9) % Basophils 1.0 (0-6) % Eosinophil Count 2.0 (0-6) % Urine Color Yellow Urine Appearance Clear Urine pH 6.0 (5.0-8.0) Ur Specific [place] <= 1.005 (1.002-1.030) Urine Protein Negative (NEGATIVE) Urine Glucose (UA) Negative (NEGATIVE) Urine Ketones Negative (NEGATIVE) Urine Blood Negative (NEGATIVE) Urine Nitrite Negative (NEGATIVE) Urine Bilirubin Negative (NEGATIVE) Urine Urobilinogen 0.2 (0.20 - 1.00) E.U./dL Ur Leukocyte Esterase Negative (NEGATIVE) Urine HCG, Qual Negative (NEGATIVE) Disposition Clinical Impression: Viral syndrome Lumbar strain Qualifiers: Encounter type: initial encounter Qualified Code(s): S39.012A - Strain of muscle, fascia and tendon of lower back, initial encounter Leukopenia Qualifiers: Leukopenia type: unspecified Qualified Code(s): D72.819 - Decreased white blood cell count, unspecified Disposition: Home, Self-Care Condition: (1) Good Instructions: Flank Pain (ED), Viral Syndrome (ED) Additional Instructions: tylenol 2 pill three times aday biofreeze to the right flank zanaflex three times a day for muscle pain follow up with primary and needs a repeat WBC to make sure WBC normalizes Prescriptions: Tizanidine HCl [Zanaflex] 2 mg PO TID #20 capsule Forms: Patient Portal Access Time of Disposition: 16:50 Quality - Quality Measures Quality Measures: N/A - Blood Pressure Screening Does Patient Have Any of the Following: No Blood Pressure Classification: Hypertensive Reading Systolic Measurement: 141 Diastolic Measurement: 92 Screening for High Blood Pressure: < Pre-Hypertensive BP, F/U Documented > [G8950] Pre-Hypertensive Follow-up Interventions: Referral to alternative/primary care provider.
[2018-10-10 16:29] LABS: BLOOD UREA NITROGEN 14 mg/dL (6-20); CREATININE 0.9 mg/dL (0.5-0.9); EST GLOMERULAR FILTRATION RATE > 60 mL/min; GLUCOSE,RANDOM 81 mg/dL (74-109)
--- NOTE | 2018-10-11 13:25 | CT SCAN REPORT ---
EXAM: CT SCAN ABDOMEN/PELVIS WO CONTRAST HISTORY: RIGHT FLANK PAIN, NAUSEA FOR 1.5 WEEKS. TECHNIQUE: Axial CT scan of the abdomen and pelvis obtained without oral or IV contrast at the referring physician's request. COMPARISON: CT abdomen and pelvis 05/12/17. FINDINGS: No calcified gallstones are seen within the gallbladder. Tiny right paramedian anterior abdominal wall hernia superior to the level of the umbilicus, containing adipose tissue but no bowel. No intrarenal calculi identified on either side. No definite hydronephrosis or hydroureter is seen. As such, it is somewhat difficult to follow the entire course of both ureters in their nondilated state throughout the retroperitoneum and pelvis. However, no definite ureteral calculus seen on either side and no bladder calculus evident. Evaluation of the bowel and viscera extremely limited without oral or IV contrast. Given this limitation, no definite hepatic, splenic, adrenal, pancreatic, or renal mass identified. Post-op change in the region of the EG junction, also present previously. 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 There is probably a small amount of free fluid in the pelvis, a nonspecific finding and may just be physiologic in nature. Appendix not well see without oral or IV contrast, although I suspect at least a portion of it is identified as a normal-caliber air-containing structure, with no convincing evidence of appendicitis. No definite free intraperitoneal air identified. Moderate stool diffusely throughout the colon and clinical correlation as to constipation is suggested. Metallic densities in the pelvis bilaterally may be related to prior fallopian tube ligation and correlation to prior surgical history is suggested. Note is made of some mild diffuse prominence of the bladder wall. This may simply be due to incomplete distention but correlation with urinalysis suggested to exclude cystitis. IMPRESSION: 1. NO DEFINITE URINARY TRACT CALCULI OR HYDRONEPHROSIS IDENTIFIED. 2. POST-OP CHANGES LEFT UPPER QUADRANT OF THE ABDOMEN BEFORE. THERE ARE PROBABLY BILATERAL TUBAL LIGATION CLIPS IN THE PELVIS WELL AND CORRELATION WITH THE SURGICAL HISTORY IS SUGGESTED. 3. MODERATE STOOL DIFFUSELY IN THE COLON SUGGESTING CONSTIPATION. 4. SMALL AMOUNT OF FREE FLUID IN THE PELVIS MAY SIMPLY BE PHYSIOLOGIC, ALTHOUGH IS NONSPECIFIC. NO FREE AIR EVIDENT. 5. MILD DIFFUSE PROMINENCE OF THE BLADDER WALL MAY SIMPLY BE DUE TO INCOMPLETE DISTENTION, ALTHOUGH CORRELATION WITH URINALYSIS SUGGESTED. JOB NUMBER: [id number] [id number]
== END 2018-10-10 17:08 | disposition home or self-care (01) ==
LOC: ER 13:33
DX: S39.012A Strain of muscle, fascia and tendon of lower back, initial encounter (principal); D72.819 Decreased white blood cell count, unspecified; Z87.891 Personal history of nicotine dependence
CPT/HCPCS: 74176; 80048; 81003; 81025; 85027; 96374; 99284; 99285; J1885